=== PATIENT | male | born 1975 | race Two or more races ===

== ENCOUNTER 2019-06-29 22:22 | Emergency (ER) | payer SELFPAY ==
[~2019-06-29] VITALS: Ht 190.5 cm; Wt 90.0 kg
--- NOTE | 2019-06-29 23:28 | NUR ---
pt to room from lobby
--- NOTE | 2019-06-29 23:38 | NUR ---
PT TO ED WITH C/O CHEST TIGHTNESSS, FEELINGS OF ANXIETY X2 DAYS, DENIES HX OF SAME. PT DENIES ANY RADIATION OF CP. PT DENIES ANY MAJOR LIFE CHANGES. EKG DONE IN TRIAGE. PT PLACED ON ALL MONITORING, CALL LIGHT WITHIN REACH., ALL SAFETY MEASURES IN PLACE.
[2019-06-30 00:39] LABS: ALANINE AMINOTRANSFERASE 31 U/L (12-78); ALBUMIN 4.2 g/dL (3.4-5.0); ANION GAP 6 mmol/L (5-15); CALCIUM 8.7 mg/dL (8.5-10.1); CHLORIDE 107 mmol/L (98-107); CREATININE 0.92 mg/dL (0.7-1.3)
[2019-06-30 00:44] LABS: ALKALINE PHOSPHATASE 91 U/L (45-117); BILIRUBIN,TOTAL 0.9 mg/dL (0.2-1.0); TOTAL PROTEIN 7.6 g/dL (6.4-8.2); TROPONIN I < 0.015 ng/mL (0.000-0.045)
[2019-06-30 00:46] LABS: BASOPHILS # (AUTO) 0.06 x10^3/uL (0-0.1); BASOPHILS % (AUTO) 1 % (0-1); EOSINOPHILS # (AUTO) 0.06 x10^3/uL (0-0.4); EOSINOPHILS % (AUTO) 1 % (1-7); LYMPHOCYTES # (AUTO) 1.51 x10^3/uL (1-3.4); LYMPHOCYTES % (AUTO) 18 % (22-44); MD NO; MEAN CORPUSCULAR HGB CONC 33.8 g/dL (33.2-36.2); MEAN CORPUSCULAR VOLUME 88.7 fL (81-97); MEAN PLATELET VOLUME 9.9 fL (7.4-10.4); MONOCYTES # (AUTO) 0.58 x10^3/uL (0.2-0.8); MONOCYTES % (AUTO) 7 % (2-9); NEUTROPHILS # (AUTO) 6.27 x10^3/uL (1.8-6.8); NEUTROPHILS % (AUTO) 74 % (42-75); PLATELET COUNT 260 x10^3/uL (130-400); RED BLOOD COUNT 5.18 x10^6/uL (4.38-5.82); RED CELL DISTRIBUTION WIDTH 13.4 % (9.4-14.8)
--- NOTE | 2019-06-30 00:46 | NUR ---
PT RESTING ON GURNEY, RESPIRATIONS EVEN AND NONLABORED. MONITORING IN PLACE, CALL LIGHT WITHIN REACH.
[2019-06-30 01:25] VITALS: BP 124/74
== END 2019-06-30 01:29 | disposition home or self-care (01) ==
LOC: ED 06-30 00:34
DX: R07.89 Other chest pain (principal)
CPT/HCPCS: 36415; 71045; 80053; 84484; 85025; 93005; 99285